=== PATIENT | female | born 1940 | race Native Hawaiian/Other Pacific Islander ===

== ENCOUNTER 2018-03-15 12:40 | Outpatient (CLI) | payer OTHER ==
[~2018-03-15 12:40] MED LIST: ASA LOW DOSE81 MG PO; CIPRO500 MG PO; DIOVAN320 MG PO; METF500T PO; NEXIUM40 M1 PO; NIFE30TA PO
== END 2018-03-15 12:58 | disposition short-term general hospital (02) ==
LOC: AMB 12:40
DX: R55 Syncope and collapse (principal); R00.2 Palpitations
CPT/HCPCS: A0425; A0427

== ENCOUNTER 2018-07-25 10:33 | Outpatient (CLI) | payer OTHER | END 2018-07-25 10:54 | disposition short-term general hospital (02) | LOC: AMB 10:33 | DX: R53.1 Weakness (principal) | CPT/HCPCS: A0425; A0427 ==

== ENCOUNTER 2019-03-11 08:53 | Outpatient (CLI) | payer OTHER ==
[~2019-03-11] VITALS: Ht 175.3 cm; Wt 90.7 kg
[2019-03-11 09:05] VITALS: BP 155/90; TEMP 98
== END 2019-03-11 10:55 | disposition home or self-care (01) ==
LOC: INF 08:53
DX: M81.0 Age-related osteoporosis without current pathological fracture (principal)
CPT/HCPCS: 36415; 82310; 96372; J0897; J2930

== ENCOUNTER 2019-10-14 10:02 | Outpatient (CLI) | payer OTHER ==
[~2019-10-14] VITALS: Ht 175.3 cm; Wt 90.7 kg
[2019-10-14 10:15] VITALS: BP 186/85; TEMP 97.9
== END 2019-10-14 11:30 | disposition home or self-care (01) ==
LOC: INF 10:02
DX: M81.0 Age-related osteoporosis without current pathological fracture (principal)
CPT/HCPCS: 36415; 82310; 96372; J0897

== ENCOUNTER 2021-02-02 09:48 | Outpatient (CLI) | payer OTHER | END 2021-02-02 20:33 | disposition home or self-care (01) | LOC: RAD 09:48 | PROVIDERS: ATTEND Internal Medicine | DX: M85.88 Other specified disorders of bone density and structure, other site (principal); M81.8 Other osteoporosis without current pathological fracture ==

== ENCOUNTER 2021-02-18 09:53 | Outpatient (CLI) | payer OTHER | END 2021-02-18 19:10 | disposition home or self-care (01) | LOC: INF 09:53 | PROVIDERS: ATTEND Internal Medicine Endocrinology, Diabetes & Metabolism | DX: M81.0 Age-related osteoporosis without current pathological fracture (principal) | CPT/HCPCS: 36415; 82310 ==

== ENCOUNTER 2021-03-19 09:51 | Outpatient (CLI) | payer OTHER ==
[~2021-03-19] VITALS: Ht 172.7 cm; Wt 82.6 kg
[2021-03-19 11:19] VITALS: BP 165/86; TEMP 98.5
== END 2021-03-19 19:23 | disposition home or self-care (01) ==
LOC: INF 09:51 → LABW 09:51 → INF 19:23
PROVIDERS: ATTEND Internal Medicine Endocrinology, Diabetes & Metabolism
DX: M81.0 Age-related osteoporosis without current pathological fracture (principal)
CPT/HCPCS: 36415; 82310; 96372; J0897